=== PATIENT | male | born 1965 | race Caucasian/White ===

== ENCOUNTER 2019-02-03 15:08 | Emergency (ER) | payer MEDICAID, OTHER ==
[~2019-02-03] VITALS: Ht 175.3 cm; Wt 85.7 kg
[~2019-02-03 15:08] MED LIST: LISI40TA4 PO; MUPI22OI2 TP; TRAM50TA PO
[2019-02-03 15:56] LABS: BASOPHILS # (AUTO) 0.1 /CMM (0.0-0.2); BASOPHILS % (AUTO) 0.8 % (0.0-2.0); EOSINOPHILS % (AUTO) 0.7 % (0.0-6.0); HEMATOCRIT 49 % (39-51); LYMPHOCYTES # (AUTO) 3.1 /CMM (0.8-4.8); LYMPHOCYTES % (AUTO) 34.4 % (20.0-44.0); MEAN CORPUSCULAR HGB CONC 34 g/dl (31.0-36.0); MEAN CORPUSCULAR VOLUME 92 fL (80-96); MONOCYTES # (AUTO) 0.5 /CMM (0.1-1.30); MONOCYTES % (AUTO) 5.4 % (2.0-12.0); NEUTROPHILS # (AUTO) 5.2 /CMM (1.8-8.9); NEUTROPHILS % (AUTO) 58.7 % (43.0-81.0); PLATELET COUNT (AUTO) 255 /CMM (150-450); RED BLOOD CELL COUNT(AUTO) 5.34 MIL/uL (4.5-6.0); WHITE BLOOD COUNT (AUTO) 8.9 K/uL (4.3-11.0)
[2019-02-03 16:16] LABS: ALANINE AMINOTRANSFERASE 137 U/L (12-78); ALBUMIN 3.9 g/dL (3.4-5.0); ALCOHOL, BLOOD < 3 mg/dL (0-0); ALKALINE PHOSPHATASE 51 U/L (46-116); ASPARTATE AMINOTRANSFERASE 61 U/L (15-37); BILIRUBIN,DIRECT 0.5 mg/dL (0.0-0.2); BILIRUBIN,TOTAL 1.8 mg/dL (0.2-1.0); CALCIUM, SERUM 9.1 mg/dL (8.5-10.1); CARBON DIOXIDE 22 mmol/L (21-32); CHLORIDE 104 mmol/L (98-107); CREATININE 0.9 mg/dL (0.6-1.3); GLUCOSE 91 mg/dL (74-106); POTASSIUM 3.7 mmol/L (3.5-5.1); SALICYLATE 4.5 mg/dL (2.8-20.0); SODIUM SERUM 141 mmol/L (136-145); UREA NITROGEN, BLOOD 19 mg/dL (7-18)
[2019-02-03 16:17] LABS: ACETAMINOPHEN < 2 ug/ml (10-30)
--- NOTE | 2019-02-03 16:48 | NUR ---
haroon from home for medical clearance,on 5149 with a plan to starve himself to . PT AAOX4, VSS. RR EVEN & UNLABORED. DENIES CP, SOB, DIZZINESS, N/V/D AT THIS TIME. PT CALM & COOPERATIVE. SEEN & EVAL'D BY DR. THOMPSON. JANAE @ & WILL CONT TO MONITOR.
--- NOTE | 2019-02-03 18:07 | NUR ---
PRIMARY CONTACT INFO. CHEVY NAIK, [id number] CONTACT INFO: .
[2019-02-03 19:02] LABS: APPEARANCE,URINE CLEAR (CLEAR); BILIRUBIN,URINE 1+ (NEGATIVE); BLOOD, URINE NEGATIVE Ery/uL (NEGATIVE); COLOR,URINE DARK YELLO (YELLOW); KETONES,URINE 2+ (NEGATIVE); LEUKOCYTE ESTERASE ,URINE NEGATIVE (NEGATIVE); NITRITE, URINE NEGATIVE (NEGATIVE); PH,URINE 5.5 (5.0-8.0); PROTEIN,URINE TRACE mg/dl (NEGATIVE); UGLUCOSE NEGATIVE (NEGATIVE)
--- NOTE | 2019-02-03 19:03 | NUR ---
PAMELA ETA 1 HR
[2019-02-03 19:14] LABS: BACTERIA,URINE Rare /HPF (None Seen); RBC,URINE 0-2 /HPF (0-2); SQUAMOUS EPITHELIAL CELL,UR 0-2 /HPF (None Seen)
[2019-02-03 19:15] LABS: MUCUS,URINE Many /LPF (None Seen)
--- NOTE | 2019-02-03 19:51 | NUR ---
PAMELA, LEAD MAINTENANCE TECHNICIAN @ BS FOR EVAL.
--- NOTE | 2019-02-03 20:22 | NUR ---
Patient is resting comfortably in bed with eyes closed. Easily aroused. VSS
--- NOTE | 2019-02-03 21:27 | NUR ---
PT ACCPETED TO [facility] BY DR GARCIA, [facility] 9 A. # FOR REPORT [phone]
--- NOTE | 2019-02-03 21:32 | NUR ---
[facility] CALLED FOR TRANSPORT. ETA 90 MINS TRIP# [id number]
[2019-02-03] MEDS ORDERED: KETOROLAC TROMETHAMINE INJ 30 MG/ML VIAL ONE (22:19)
[2019-02-03] MEDS ORDERED: KETOROLAC TROMETHAMINE INJ 30 MG/ML VIAL IM ONE (22:30)
[2019-02-03 23:19] VITALS: BP 124/75
--- NOTE | 2019-02-03 23:19 | NUR ---
REPORT GIVEN TO AUDRA BONNER AT [facility] FOR ASHANTI. AWAITING S TRANSPORT.
--- NOTE | 2019-02-03 23:30 | NUR ---
ETA [id number]
--- NOTE | 2019-02-03 23:58 | NUR ---
[facility] AT BEDSIDE FOR TRANSPORT TO [facility]
== END 2019-02-04 00:18 ==
LOC: ER 15:11
DX: R45.851 Suicidal ideations (principal); R07.89 Other chest pain; F43.9 Reaction to severe stress, unspecified; M79.671 Pain in right foot; G89.29 Other chronic pain; I10 Essential (primary) hypertension; F10.10 Alcohol abuse, uncomplicated; F32.9 Major depressive disorder, single episode, unspecified; Y90.0 Blood alcohol level of less than 20 mg/100 ml; Z86.19 Personal history of other infectious and parasitic diseases; Z85.818 Personal history of malignant neoplasm of other sites of lip, oral cavity, and pharynx; Z98.890 Other specified postprocedural states; Z60.2 Problems related to living alone; Z88.9 Allergy status to unspecified drugs, medicaments and biological substances; Z88.6 Allergy status to analgesic agent
CPT/HCPCS: 36415; 71045; 80048; 80076; 80305; 80307; 80329; 81001; 84484; 85025; 93005; 96372; 99285; G0480; J1885; 81000-TC

== ENCOUNTER 2019-02-26 05:14 | Emergency (ER) | payer MEDICAID ==
[~2019-02-26] VITALS: Ht 170.2 cm; Wt 72.6 kg
--- NOTE | 2019-02-26 05:20 | NUR ---
PT [id number], PER EMS, PT STATES "BUZZ NOISE IN HEAD," PT RESTLESS AND ERRATIC BEHAVIOR. PT STATING "I CAN'T BREATH." PT PUT ON THE JAVA FLEX DEVELOPER AND PULSE OX. PENDING EVAL FROM ER .
[2019-02-26 05:40] LABS: BASOPHILS # (AUTO) 0.1 /CMM (0.0-0.2); BASOPHILS % (AUTO) 0.5 % (0.0-2.0); EOSINOPHILS % (AUTO) 0.8 % (0.0-6.0); HEMATOCRIT 48 % (39-51); HEMOGLOBIN 16.5 g/dL (13.5-17.5); LYMPHOCYTES # (AUTO) 3.5 /CMM (0.8-4.8); LYMPHOCYTES % (AUTO) 29.3 % (20.0-44.0); MEAN CORPUSCULAR HGB CONC 35 g/dl (31.0-36.0); MEAN CORPUSCULAR VOLUME 92 fL (80-96); MONOCYTES # (AUTO) 0.9 /CMM (0.1-1.30); MONOCYTES % (AUTO) 7.4 % (2.0-12.0); NEUTROPHILS # (AUTO) 7.3 /CMM (1.8-8.9); PLATELET COUNT (AUTO) 216 /CMM (150-450); RED BLOOD CELL COUNT(AUTO) 5.17 MIL/uL (4.5-6.0); WHITE BLOOD COUNT (AUTO) 11.9 K/uL (4.3-11.0)
[2019-02-26 05:48] LABS: CALCIUM, SERUM 9.3 mg/dL (8.5-10.1); CARBON DIOXIDE 26 mmol/L (21-32); CHLORIDE 102 mmol/L (98-107); CREATININE 1.1 mg/dL (0.6-1.3); GLUCOSE 136 mg/dL (74-106); POTASSIUM 3.3 mmol/L (3.5-5.1); SODIUM SERUM 142 mmol/L (136-145); UREA NITROGEN, BLOOD 16 mg/dL (7-18)
[2019-02-26 05:54] LABS: ALANINE AMINOTRANSFERASE 100 U/L (12-78); ALKALINE PHOSPHATASE 59 U/L (46-116); ASPARTATE AMINOTRANSFERASE 52 U/L (15-37); BILIRUBIN,DIRECT 0.4 mg/dL (0.0-0.2); BILIRUBIN,TOTAL 1.2 mg/dL (0.2-1.0); LIPASE 66 U/L (73-393); SALICYLATE 3.9 mg/dL (2.8-20.0)
[2019-02-26 06:00] LABS: ACETAMINOPHEN 0 ug/ml (10-30); ALCOHOL, BLOOD < 3 mg/dL (0-0)
[2019-02-26] MEDS ORDERED: LORAZEPAM INJ 2 MG/ML VIAL ONE (06:09)
--- NOTE | 2019-02-26 06:15 | NUR ---
XRAY AT BEDSIDE.
[2019-02-26] MEDS ORDERED: LORAZEPAM INJ 2 MG/ML VIAL IM ONE (06:30)
[2019-02-26] MEDS ORDERED: OLANZAPINE 5 MG TABLET PO ONE (07:00)
[2019-02-26] MEDS ORDERED: OLANZAPINE 5 MG TABLET ONE (07:01)
[2019-02-26 07:12] LABS: APPEARANCE,URINE CLEAR (CLEAR); BILIRUBIN,URINE 2+ (NEGATIVE); BLOOD, URINE NEGATIVE Ery/uL (NEGATIVE); COLOR,URINE AMBER (YELLOW); KETONES,URINE 3+ (NEGATIVE); LEUKOCYTE ESTERASE ,URINE NEGATIVE (NEGATIVE); NITRITE, URINE NEGATIVE (NEGATIVE); PROTEIN,URINE 2+ mg/dl (NEGATIVE); UGLUCOSE NEGATIVE (NEGATIVE)
--- NOTE | 2019-02-26 07:18 | NUR ---
REPORT GIVEN TO NASEEM ZHU FOR ASHANTI.
--- NOTE | 2019-02-26 07:19 | NUR ---
REPORT RECEIVED FROM MARCI ZHU FOR ASHANTI
[2019-02-26 07:41] LABS: BACTERIA,URINE Rare /HPF (None Seen); CALCIUM OXALATE CRYSTALS,UR Rare /HPF (None Seen); MUCUS,URINE Few /LPF (None Seen); RBC,URINE 0-2 /HPF (0-2); SQUAMOUS EPITHELIAL CELL,UR Rare /HPF (None Seen)
--- NOTE | 2019-02-26 08:09 | NUR ---
PATIENT PROVIDED W BREAKFAST TRAY. TOLERATING PO WELL.
--- NOTE | 2019-02-26 08:18 | NUR ---
Patient discharged to home in stable condition. Written and verbal after care instructions given. Patient verbalizes understanding of instruction. Provided w tap card per patient request to ba able to go home.
[2019-02-26 08:24] VITALS: BP 151/89
== END 2019-02-26 08:25 | disposition home or self-care (01) ==
LOC: ER 05:15
DX: K76.0 Fatty (change of) liver, not elsewhere classified (principal); R74.0 Nonspecific elevation of levels of transaminase and lactic acid dehydrogenase [LDH]; I10 Essential (primary) hypertension; Z86.19 Personal history of other infectious and parasitic diseases; Z98.890 Other specified postprocedural states; Z88.8 Allergy status to other drugs, medicaments and biological substances; Z91.048 Other nonmedicinal substance allergy status; Z60.2 Problems related to living alone; Z79.899 Other long term (current) drug therapy; Z85.818 Personal history of malignant neoplasm of other sites of lip, oral cavity, and pharynx
CPT/HCPCS: 36415; 71045; 76705; 80048; 80076; 80305; 80307; 80329; 81001; 83690; 85025; 96372; 99284; G0480; J2060; 81000-TC

== ENCOUNTER 2019-05-11 06:42 | Emergency (ER) | payer MEDICAID ==
[~2019-05-11] VITALS: Ht 170.2 cm; Wt 71.7 kg
[2019-05-11] MEDS ORDERED: ASPIRIN 325 MG TABLET PO ONE (07:00)
[2019-05-11] MEDS ORDERED: IV NS 0.9% 1,000 ML BAG IV ONE (07:00)
--- NOTE | 2019-05-11 07:04 | NUR ---
WILMER FROM HOME TO ER BED 4. AAOX4. BREATHIBG RAPID BUT EVEN. VERY ANXIOUS. TREMBLING. 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 PT REPORTS THAT HIS BODY HURTS, CHEST PAIN, NON RADIATING. PEDAL PULSE NOTED ON BILAT FOOT. MD AT BEDSIDE FOR EVAL. ORDERS RECEIVED, NOTED AND CARRIED OUT. IV LINE OBTAINED ON L AC 18G. BLOOD DRAWNA AND GIVENT O ADMINISTRATIVE NURSING SUPERVISOR AT BEDSIDE. EKG AND XRAY DONE. PT REFUSED TO RECEIVED IV HYDRATION, MD AWARE. WILL CONTINUE TO MONITOR
[2019-05-11] MEDS ORDERED: ASPIRIN 325 MG TABLET ONE (07:16)
[2019-05-11 07:23] LABS: CALCIUM, SERUM 9.5 mg/dL (8.5-10.1); CARBON DIOXIDE 26 mmol/L (21-32); CHLORIDE 104 mmol/L (98-107); CREATININE 0.9 mg/dL (0.6-1.3); GLUCOSE 136 mg/dL (74-106); POTASSIUM 3.8 mmol/L (3.5-5.1); SODIUM SERUM 139 mmol/L (136-145); UREA NITROGEN, BLOOD 12 mg/dL (7-18)
[2019-05-11 07:29] LABS: ALANINE AMINOTRANSFERASE 57 U/L (12-78); ALKALINE PHOSPHATASE 51 U/L (46-116); ASPARTATE AMINOTRANSFERASE 35 U/L (15-37); BILIRUBIN,DIRECT 0.2 mg/dL (0.0-0.2); BILIRUBIN,TOTAL 0.9 mg/dL (0.2-1.0); LIPASE 115 U/L (73-393); TOTAL PROTEIN, SERUM 8.1 g/dL (6.4-8.2)
[2019-05-11 07:33] LABS: BASOPHILS # (AUTO) 0.1 /CMM (0.0-0.2); BASOPHILS % (AUTO) 0.6 % (0.0-2.0); EOSINOPHILS % (AUTO) 1.3 % (0.0-6.0); HEMATOCRIT 47 % (39-51); HEMOGLOBIN 16.2 g/dL (13.5-17.5); LYMPHOCYTES # (AUTO) 3.1 /CMM (0.8-4.8); MEAN CORPUSCULAR HGB CONC 34 g/dl (31.0-36.0); MEAN CORPUSCULAR VOLUME 93 fL (80-96); MONOCYTES # (AUTO) 0.7 /CMM (0.1-1.30); NEUTROPHILS # (AUTO) 5.7 /CMM (1.8-8.9); NEUTROPHILS % (AUTO) 59.1 % (43.0-81.0); PLATELET COUNT (AUTO) 188 /CMM (150-450); RED BLOOD CELL COUNT(AUTO) 5.05 MIL/uL (4.5-6.0); WHITE BLOOD COUNT (AUTO) 9.6 K/uL (4.3-11.0)
[2019-05-11] MEDS ORDERED: LORAZEPAM INJ 2 MG/ML VIAL ONE (08:57)
[2019-05-11] MEDS ORDERED: LORAZEPAM INJ 2 MG/ML VIAL IV ONE (09:00)
--- NOTE | 2019-05-11 10:23 | NUR ---
LAB TECHA AT BEDSIDE FOR TROPONIN RECHECK
--- NOTE | 2019-05-11 11:21 | NUR ---
IV removed. Catheter intact and site benign. Pressure and 4x4 applied to site. No bleeding noted.Patient discharged to home in stable condition. Written and verbal after care instructions given. Patient verbalizes understanding of instruction.
--- NOTE | 2019-05-11 11:23 | NUR ---
PROVIDED W TAP CARD
[2019-05-11 11:24] VITALS: BP 142/72
== END 2019-05-11 11:25 | disposition home or self-care (01) ==
LOC: ER 06:45
DX: R07.89 Other chest pain (principal); I10 Essential (primary) hypertension; Z86.19 Personal history of other infectious and parasitic diseases; Z98.890 Other specified postprocedural states; Z91.048 Other nonmedicinal substance allergy status; Z60.2 Problems related to living alone; Z79.899 Other long term (current) drug therapy; Z85.819 Personal history of malignant neoplasm of unspecified site of lip, oral cavity, and pharynx
CPT/HCPCS: 36415; 71045; 80048; 80076; 83690; 84484 ×2; 85025; 93005 ×2; 96374; 99284; J2060; J7030

== ENCOUNTER 2019-05-25 08:52 | Emergency (ER) | payer MEDICAID ==
[~2019-05-25] VITALS: Ht 170.2 cm; Wt 71.7 kg
--- NOTE | 2019-05-25 09:04 | NUR ---
CARLIE, FROM HOME, C/O "I CAN'T BREATH, NOT EATING", AMBULATORY ON SCENE. ON ROOM AIR, BREATHING EVENLY AND UNLABORED. CONNECTED TO THE MONITOR AND PULSE OX. KEPT COMFORTABLE, WILL CONTINUE TO MONITOR ACCORDINGLY.
--- NOTE | 2019-05-25 09:12 | NUR ---
dr cuadra at bedside
[2019-05-25 09:29] LABS: BASOPHILS % (AUTO) 0.3 % (0.0-2.0); EOSINOPHILS % (AUTO) 0.8 % (0.0-6.0); HEMATOCRIT 48 % (39-51); HEMOGLOBIN 15.9 g/dL (13.5-17.5); LYMPHOCYTES # (AUTO) 2.9 /CMM (0.8-4.8); LYMPHOCYTES % (AUTO) 24.4 % (20.0-44.0); MEAN CORPUSCULAR HGB CONC 33 g/dl (31.0-36.0); MEAN CORPUSCULAR VOLUME 95 fL (80-96); MONOCYTES # (AUTO) 0.6 /CMM (0.1-1.30); MONOCYTES % (AUTO) 5.3 % (2.0-12.0); NEUTROPHILS # (AUTO) 8.3 /CMM (1.8-8.9); NEUTROPHILS % (AUTO) 69.2 % (43.0-81.0); PLATELET COUNT (AUTO) 317 /CMM (150-450); RED BLOOD CELL COUNT(AUTO) 5.01 MIL/uL (4.5-6.0)
[2019-05-25] MEDS ORDERED: LORAZEPAM INJ 2 MG/ML VIAL ONE (09:30)
[2019-05-25] MEDS ORDERED: LORAZEPAM INJ 2 MG/ML VIAL IV ONE (09:30)
[2019-05-25] MEDS ORDERED: IV NS 0.9% 1,000 ML BAG IV ONE (09:30)
[2019-05-25 09:39] LABS: CALCIUM, SERUM 9.3 mg/dL (8.5-10.1); CARBON DIOXIDE 20 mmol/L (21-32); CHLORIDE 100 mmol/L (98-107); CREATININE 1.1 mg/dL (0.6-1.3); GLUCOSE 97 mg/dL (74-106); POTASSIUM 3.7 mmol/L (3.5-5.1); SODIUM SERUM 136 mmol/L (136-145); UREA NITROGEN, BLOOD 21 mg/dL (7-18)
[2019-05-25 09:44] LABS: ALANINE AMINOTRANSFERASE 57 U/L (12-78); ALBUMIN 4.3 g/dL (3.4-5.0); ALKALINE PHOSPHATASE 65 U/L (46-116); ASPARTATE AMINOTRANSFERASE 43 U/L (15-37); BILIRUBIN,DIRECT 0.2 mg/dL (0.0-0.2); BILIRUBIN,TOTAL 0.8 mg/dL (0.2-1.0); LIPASE 109 U/L (73-393); TOTAL PROTEIN, SERUM 8.7 g/dL (6.4-8.2)
--- NOTE | 2019-05-25 10:58 | NUR ---
provided w tap card.
[2019-05-25 11:00] VITALS: BP 146/92
== END 2019-05-25 11:00 | disposition home or self-care (01) ==
LOC: ER 08:54
DX: E86.0 Dehydration (principal); R07.89 Other chest pain; I10 Essential (primary) hypertension; F10.10 Alcohol abuse, uncomplicated; Y90.9 Presence of alcohol in blood, level not specified; Z86.19 Personal history of other infectious and parasitic diseases; Z85.818 Personal history of malignant neoplasm of other sites of lip, oral cavity, and pharynx; Z98.890 Other specified postprocedural states; Z60.2 Problems related to living alone; Z79.899 Other long term (current) drug therapy; Z88.8 Allergy status to other drugs, medicaments and biological substances; Z88.6 Allergy status to analgesic agent
CPT/HCPCS: 36415; 71045; 80048; 80076; 83690; 84484; 85025; 93005; 96374; 99284; J2060; J7030

== ENCOUNTER 2019-06-16 07:28 | Inpatient (IN) | payer MEDICAID ==
[~2019-06-16] VITALS: Ht 170.2 cm; Wt 65.8 kg
[2019-06-16] VITALS (30 sets, daily range): BP systolic 85–137; BP diastolic 44–95
--- NOTE | 2019-06-16 07:30 | NUR ---
BIB RA 78 FROM HOME, TEXTED SOMEBODY SAYING HE WAS VOMITING BLOOD,UNCOO-PERATIVE WITH EMS. PATIENT ALERT AND ORIENTED, REFUSING TO ANSWER QUESTIONS, UNCOOPERATIVE WITH STAFF. CHANGED INTO GOWN, ATTACHED TO THE IOS PROGRAMMER. NEEDS ATTENDED. KEPT COMFORTABLE.
--- NOTE | 2019-06-16 07:40 | NUR ---
DR. GALLEGOS AT BEDSIDE FOR EVAL.
[2019-06-16] MEDS ORDERED: ONDANSETRON HCL/PF 4 MG/2 ML VIAL ONE (07:52)
[2019-06-16] MEDS ORDERED: PANTOPRAZOLE 40 MG VIAL ONE (07:52)
[2019-06-16] MEDS ORDERED: PANTOPRAZOLE 40 MG VIAL IV ONE (08:00)
[2019-06-16] MEDS ORDERED: ONDANSETRON HCL/PF 4 MG/2 ML VIAL IVP ONE (08:00)
[2019-06-16] MEDS ORDERED: IV NS 0.9% 1,000 ML BAG IV ONE (08:00)
[2019-06-16 08:28] LABS: BASOPHILS # (AUTO) 0.1 /CMM (0.0-0.2); BASOPHILS % (AUTO) 0.5 % (0.0-2.0); EOSINOPHILS % (AUTO) 0.1 % (0.0-6.0); LYMPHOCYTES # (AUTO) 3.8 /CMM (0.8-4.8); LYMPHOCYTES % (AUTO) 25.5 % (20.0-44.0); MEAN CORPUSCULAR HGB CONC 31 g/dl (31.0-36.0); MEAN CORPUSCULAR VOLUME 95 fL (80-96); MONOCYTES # (AUTO) 0.8 /CMM (0.1-1.30); MONOCYTES % (AUTO) 5.7 % (2.0-12.0); NEUTROPHILS # (AUTO) 10.2 /CMM (1.8-8.9); NEUTROPHILS % (AUTO) 68.2 % (43.0-81.0); PLATELET COUNT (AUTO) 406 /CMM (150-450); WHITE BLOOD COUNT (AUTO) 14.9 K/uL (4.3-11.0)
[2019-06-16 08:30] LABS: CALCIUM, SERUM 7.8 mg/dL (8.5-10.1); CARBON DIOXIDE 20 mmol/L (21-32); CHLORIDE 102 mmol/L (98-107); CREATININE 1.2 mg/dL (0.6-1.3); GLUCOSE 188 mg/dL (74-106); POTASSIUM 3.7 mmol/L (3.5-5.1); SODIUM SERUM 139 mmol/L (136-145); UREA NITROGEN, BLOOD 34 mg/dL (7-18)
[2019-06-16 08:34] LABS: RED BLOOD CELL COUNT(AUTO) 1.56 MIL/uL (4.5-6.0)
[2019-06-16 08:35] LABS: HEMATOCRIT 15 % (39-51); HEMOGLOBIN 4.6 g/dL (13.5-17.5)
[2019-06-16 08:36] LABS: ACETAMINOPHEN 2 ug/ml (10-30); ALANINE AMINOTRANSFERASE 23 U/L (12-78); ALBUMIN 2.3 g/dL (3.4-5.0); ALCOHOL, BLOOD < 3 mg/dL (0-0); ALKALINE PHOSPHATASE 44 U/L (46-116); ASPARTATE AMINOTRANSFERASE 31 U/L (15-37); BILIRUBIN,DIRECT 0.1 mg/dL (0.0-0.2); BILIRUBIN,TOTAL 0.2 mg/dL (0.2-1.0); LIPASE 154 U/L (73-393); SALICYLATE 3.5 mg/dL (2.8-20.0); TOTAL PROTEIN, SERUM 5.2 g/dL (6.4-8.2)
--- NOTE | 2019-06-16 08:45 | NUR ---
METAL INSPECTOR AT BEDSIDE FOR CXR.
[2019-06-16 08:53] LABS: APPEARANCE,URINE Clear (CLEAR); BILIRUBIN,URINE Negative (NEGATIVE); BLOOD, URINE Negative Ery/uL (NEGATIVE); COLOR,URINE Yellow (YELLOW); KETONES,URINE Trace (NEGATIVE); LEUKOCYTE ESTERASE ,URINE Negative (NEGATIVE); NITRITE, URINE Negative (NEGATIVE); PROTEIN,URINE Negative (NEGATIVE); UGLUCOSE Negative (NEGATIVE); UROBILINOGEN,URINE 0.2 EU/dL (0.2)
[2019-06-16 09:00] LABS: BACTERIA,URINE Rare /HPF (None Seen); RBC,URINE NONE SEEN /HPF (0-2); SQUAMOUS EPITHELIAL CELL,UR Few /HPF (None Seen); WBC,URINE NONE SEEN /HPF (0-3)
--- NOTE | 2019-06-16 09:06 | NUR ---
WHEELED OUT VIA RNEY FOR CT SCAN
[2019-06-16] MEDS ORDERED: MIDAZOLAM HCL 5 MG/5ML VIAL ONE (09:12)
--- NOTE | 2019-06-16 09:26 | NUR ---
SPOKE WITH ALDAIR ZHU FOR ASHANTI.
[2019-06-16] MEDS ORDERED: MIDAZOLAM HCL 2 MG/2ML VIAL IV ONE (09:30)
--- NOTE | 2019-06-16 10:02 | NUR ---
called house sup for icu bed
--- NOTE | 2019-06-16 10:02 | NUR ---
spoke to dr vasquez
--- NOTE | 2019-06-16 10:03 | NUR ---
called division roadmaster GI
--- NOTE | 2019-06-16 10:07 | NUR ---
called consuelo to have image read
[2019-06-16 10:17] LABS: THYROID STIMULATING HORMONE 7.321 uIU/mL (0.358-3.74)
[2019-06-16 10:33] LABS: LYMPHOCYTES % (MANUAL) 24 % (16-48); MONOCYTES % (MANUAL) 2 % (0-11.0); NEUTROPHILS % (MANUAL) 74 (42-76)
--- NOTE | 2019-06-16 11:15 | NUR ---
1 UNIT OF PRBC STARTED ON LEFT HAND G20 IV AT 1110. NO ADVERSE REACTION NOTED. VITALS STABLE.
--- NOTE | 2019-06-16 11:45 | NUR ---
PATIENT TRANSFERRED TO ROOM 252 VIA ACLS PROTOCOL. NO DISTRESS NOTED. ENDORSED TO TK RN.
--- NOTE | 2019-06-16 12:00 | NUR ---
RN NOTES RECEIVED PATIENT FROM ER VIA TEMI. ABLE TO MOVE BED TO BED. PATIENT A/OX4, ABLE TO MAKE NEEDS KNOWN. COLD TO TOUCH THUS SATURATION NOT ACCURATE AT THIS TIME, PATIENT WITH COMPLAINTS OF SHORTNESS OF BREATH, ON OXYGEN VIA NASAL CANNULA AT 3LPM. WITH COMPLAINTS OF ABDOMINAL PAIN. PATIENT ATTACHED TO MONITOR. SKIN ASSESSMENT DONE, SKIN NOTED INTACT. PATIENT WITH ONGOING FLUID AND BLOOD STARTED FROM THE ER, WILL FINISH IT UP AND WILL CONTINUE TO MONITOR. PATIENT MADE COMFORTABLE, ENCOURAGE TO CALL FOR HELP AND ASSISTANCE, VERBALIZED FEELINGS AND CONCERNS. HOB KEPT ELEVATED. SAFETY MEASURES PUT IN PLACE. WILL CONTINUE TO MONITOR PATIENT AND WAIT FOR ADMITTING ORDERS
[2019-06-16] MEDS: IV D5/ 0.9% NACL 1,000 ML IV PRN (12:15)
--- NOTE | 2019-06-16 12:15 | NUR ---
RN NOTES PATIENT CONTINUES TO COMPLAIN OF PAIN AND DRY MOUT. PAGED DR FLOWER. OBTAINED ORDERS. ORDERS NOTED AND CARRIED OUT. DR FLOWER WITH INSTRUCTION, OKAY TO GIVE ICE CHIPS
[2019-06-16] MEDS: ONDANSETRON HCL/PF 4 MG/2 ML VIAL IV PRN (12:24)
[2019-06-16] MEDS: PANTOPRAZOLE 40 MG VIAL IV SCH ×2 (12:24→23:43)
[2019-06-16] MEDS ORDERED: MORPHINE SULFATE INJ 2 MG/ML DISP.SYRIN IM/IV PRN (12:30)
--- NOTE | 2019-06-16 13:00 | NUR ---
RN NOTES DR. FLOWER AT THE UNIT. PATIENT SEEN AND EXAMINED. PER DR. FLOWER, OKAY TO GIVE ICE CHIPS TOLERATED. ALSO DR. CORCORAN MADE AWARE OF CONSULT ORDER PER DR. FLOWER'S REQUEST TO CALL HIM
[2019-06-16] MEDS: HYDROMORPHONE 1 MG/1 ML DISP.SYRIN IV PRN ×3 (14:24→22:47)
--- NOTE | 2019-06-16 19:30 | NUR ---
RN NOTES ENDORSED PATIENT FOR CONTINUITY OF CARE. NOT ON CARDIORESPIRATORY DISTRESS BUT STILL WITH COMPLAINTS OF SHORTNESS OF BREATH AND ABDOMINAL PAIN. BAG 3 STARTED AND INFUSING. ENDORSED TO INCOMING SHIFT ON ORDERS TO CHECK H AND H AFTER 1 HOUR AFTER THE TRANSFUSION AND Q4 THEREAFTER
[2019-06-16] MEDS: LORAZEPAM INJ 2 MG/ML VIAL IV PRN (19:36)
--- NOTE | 2019-06-16 23:45 | NUR ---
after 3rd PRBC transfusion h/h is 6.0/19, up from 4.6/15. dr vasquez was notified and informed, since hgb is still critical, he ordered 2 more PRBC and 2 FFP and to decrease d5ns to 50 ml/hr
[2019-06-17] VITALS (35 sets, daily range): BP systolic 70–144; BP diastolic 33–104
[2019-06-17] MEDS: IV D5/ 0.9% NACL 1,000 ML IV PRN ×2 (00:49→04:31)
[2019-06-17] MEDS: LORAZEPAM INJ 2 MG/ML VIAL IV PRN ×3 (01:49→20:41)
--- NOTE | 2019-06-17 02:23 | NUR ---
pt is refusing any additional blood transfusion, pt was educated multiple times about the importance of getting the blood and pt is continuing to refuse. Dr vasquez notified, will not give any more blood transfusion now, and Dr. Vasquez gave order to transfer pt to [facility], pt is stable on room air.
--- NOTE | 2019-06-17 03:31 | NUR ---
pt transferred to [facility]- tele status with nurse discharge Ed, pt awake alert, vss
[2019-06-17] MEDS: HYDROMORPHONE 1 MG/1 ML DISP.SYRIN IV PRN ×5 (03:50→21:08)
--- NOTE | 2019-06-17 03:50 | NUR ---
MS/RN NOTE: C/O BURNING PAIN ON HIS THROAT, 10/10 ON PAIN SCALE, DILAUDID 0.5 MG IVP GIVEN.
--- NOTE | 2019-06-17 03:51 | NUR ---
MS/RN NOTE: RECEIVED TRANFER FROM ICU A 54 YEAR OLD MALE , DX OF ORAL CANCER, C/O BURNING PAIN INSIDE HIS THROAT, A/O X2, HE DOES NOT KNOW WHERE HE IS, VITALS 98/57, MAP 71, PULSE 78, TEMP. 99.0. ROOM AIR 99%. NO ACUTE DISTRESS NOTED. WILL CONTINUE TO MONITOR.
--- NOTE | 2019-06-17 06:17 | NUR ---
MS/RN NOTE: CALLED AND SPOKE WITH DR. SMITH, NOTIFIED OF PATIENT'S LATEST CONDITION, MD ORDERED, 2 UNITS PRBC AND 2 UNITS OF FFP. LATEST VS144/98, 126, 100% SAT. ON 2L VIA OK.
--- NOTE | 2019-06-17 06:19 | NUR ---
MS/RN NOTE: CALLED LAB AND ASKED IF BLOOD AVAILABLE, THEY WILL CALL ME BACK.
--- NOTE | 2019-06-17 06:19 | NUR ---
MS/RN NOTE: LATEST PULSE 98 FORM 126.
--- NOTE | 2019-06-17 06:37 | NUR ---
TELERN PLACED [facility]. UPDATED REGARDING PATIENTS' CONDITION. LEFT MESSAGE. INFORMED PRIMARY RN
--- NOTE | 2019-06-17 06:59 | NUR ---
GPS/RN NOTE: MS/RN NOTE: FIRST UNIT OF BLOOD STARTED @ 0657, NO TRANSFUSION REACTION NOTED.
[2019-06-17 07:13] LABS: ALBUMIN 1.6 g/dL (3.4-5.0); BILIRUBIN,TOTAL 0.5 mg/dL (0.2-1.0); CALCIUM, SERUM 6.8 mg/dL (8.5-10.1); POTASSIUM 4.1 mmol/L (3.5-5.1); TOTAL PROTEIN, SERUM 3.7 g/dL (6.4-8.2)
--- NOTE | 2019-06-17 07:14 | NUR ---
MS/RN NOTE: WAS NOTIFIED BY CHARGE NURSE ABOUT PATIENT'S LATEST CONDITION.
--- NOTE | 2019-06-17 07:55 | NUR ---
rn notes received patient in the bed restless, confused, on mask 10L, v/s taken bp -70.39, P-102, r-30, t-97.4, on mask 10L. running blood at this time 150 ml/hr on right UA midline intact. Seen patient by Dr Oden get order to transfer patient to the ICU.
--- NOTE | 2019-06-17 08:15 | NUR ---
RN NOTES GET CALL FROM GI MD CORCORAN PATIENT GOING TO HAVE EGD FOR DIAGNOSTIC AND TREATMENT FOR GI BLEEDING. ADMINISTERED NS BOLUS 500 ML.
[2019-06-17] MEDS ORDERED: IV NS 0.9% 500 ML IV ONE (09:00)
[2019-06-17 09:25] LABS: BASOPHILS # (AUTO) 0.1 /CMM (0.0-0.2); BASOPHILS % (AUTO) 0.5 % (0.0-2.0); EOSINOPHILS % (AUTO) 0.3 % (0.0-6.0); LYMPHOCYTES # (AUTO) 3.5 /CMM (0.8-4.8); MEAN CORPUSCULAR HGB CONC 33 g/dl (31.0-36.0); MEAN CORPUSCULAR VOLUME 89 fL (80-96); MONOCYTES # (AUTO) 0.8 /CMM (0.1-1.30); MONOCYTES % (AUTO) 6.5 % (2.0-12.0); NEUTROPHILS # (AUTO) 7.2 /CMM (1.8-8.9); NEUTROPHILS % (AUTO) 62.7 % (43.0-81.0); PLATELET COUNT (AUTO) 257 /CMM (150-450); WHITE BLOOD COUNT (AUTO) 11.5 K/uL (4.3-11.0)
--- NOTE | 2019-06-17 09:29 | NUR ---
RN NOTES STARTED SECOND UNIT OF BLOOD AT THIS TIME T-97.4, P-67, R-33, BP-133/103, O2-10L MASK. PATIENT COMPLAINING OF PAIN ON STOMACH. ALSO TRANSFERRING PATIENT TO THE OR AT THIS TIME FOR EGD PER MD ORDER.
[2019-06-17] MEDS ORDERED: EPINEPHRINE (1:1000) 1 MG/ML AMPUL ONE (09:49)
[2019-06-17 09:51] LABS: RED BLOOD CELL COUNT(AUTO) 1.45 MIL/uL (4.5-6.0)
[2019-06-17 09:52] LABS: HEMATOCRIT 13 % (39-51); HEMOGLOBIN 4.3 g/dL (13.5-17.5)
[2019-06-17 10:00] LABS: LYMPHOCYTES % (MANUAL) 27 % (16-48); MONOCYTES % (MANUAL) 3 % (0-11.0); NEUTROPHILS % (MANUAL) 70 (42-76)
--- NOTE | 2019-06-17 10:53 | NUR ---
RN NOTES GIVEN 3RD UNITS OF BLOOD ON OR NURSE.
--- NOTE | 2019-06-17 11:30 | NUR ---
ICU/RN: Pt received; 3rd unit of PRBC transfusion completed in OR. Pt pale, breathing even and unlabored, drowsy. Alert and oriented x4. ELIAS ML patent intact, LFA #20 flushed, clamped. Oriented to unit and poc. Nodded head in agreement.
[2019-06-17] MEDS: LIDOCAINE VISCOUS 2% UD 15 ML UDC MM PRN ×2 (12:43→17:35)
[2019-06-17] MEDS: PANTOPRAZOLE 40 MG VIAL IV SCH (12:44)
[2019-06-17 12:47] LABS: HEMOGLOBIN 8.2 g/dL (13.5-17.5)
--- NOTE | 2019-06-17 12:50 | NUR ---
ICU/RN: Called Dr Oden; informed of pt request for comfort care measures only. Pt previously DNR/DNI prior to surgery. Pt states "I am ready to go, I really just want to be comfortable, I don't want anything done anymore." Per Dr Oden, "continue current pain management regimen, H/H q6h, keep pt as comfortable as possible, I'll talk to him in the morning." MD aware pt refusing blood transfusion. Last H/H relayed to MD. cover stitch machine operator updated.
--- NOTE | 2019-06-17 13:58 | NUR ---
building services coordinator consult requested by Transportation OfficerManager Noland for suicidal ideation assessment. Pt is a 54 year old male admitted to [facility] for altered/GI bleeding. Per Transportation Officer Nuzhat, pts Mother expressed concerned regarding pt possibly exhibiting suicidal ideation due to pt telling his Mother he had plans on ending his life by no longer eating or drinking fluids. SW attempted to conduct social service assessment with pt but pt is not alert and not able to cooperate during this time. SW consulted with attending nurse, and nurse states pt is currently receiving comfort care. SW will follow up at a later time. SW will inform Transportation Officer Nuzhat of aforementioned information. SW will remain available if needed.
--- NOTE | 2019-06-17 18:00 | NUR ---
ICU/RN: Pt c/o abd pain however also requesting snacks, despite stating "It's also hard for me to swallow from the pain." Educated pt on diagnosis, and need for NPO. Ice chips provided for comfort as ordered. Pt also elaborates on medical history stating that he's had "esophageal and throat cancer for 6 years, and was recently told by his doctor that it may have spread to his colon." Pt has refused further work up since and prefers not to have any aggressive treatment saying "It's time, I'm just leaving it in God's hands."
[2019-06-17 18:56] LABS: HEMOGLOBIN 8.3 g/dL (13.5-17.5)
--- NOTE | 2019-06-17 20:00 | NUR ---
BINDER LOCKSTITCH - NOTES - RECEIVED PATIENT IN BED. PATIENT A/OX4, ABLE TO MAKE NEEDS KNOWN. WITH COMPLAINTS OF ABDOMINAL PAIN. PATIENT ATTACHED TO MONITOR. SKIN ASSESSMENT DONE, SKIN NOTED INTACT. PATIENT MADE COMFORTABLE, ENCOURAGE TO CALL FOR HELP AND ASSISTANCE, VERBALIZED FEELINGS AND CONCERNS. HOB KEPT ELEVATED. SAFETY MEASURES PUT IN PLACE. WILL CONTINUE TO MONITOR PATIENT AND WAIT FOR ADMITTING ORDERS
[2019-06-18] VITALS (15 sets, daily range): BP systolic 68–138; BP diastolic 36–78
[2019-06-18] MEDS: HYDROMORPHONE 1 MG/1 ML DISP.SYRIN IV PRN ×3 (00:11→08:01)
[2019-06-18] MEDS: PANTOPRAZOLE 40 MG VIAL IV SCH ×2 (00:11→12:30)
[2019-06-18] MEDS: LORAZEPAM INJ 2 MG/ML VIAL IV PRN ×2 (04:09→10:07)
[2019-06-18] MEDS: IV D5/ 0.9% NACL 1,000 ML IV PRN (06:13)
--- NOTE | 2019-06-18 07:30 | NUR ---
RN NOTES RECEIVED PATIENT IN BED. AWAKE, ORIENTED X 4, APPROPRIATE AND ABLE TO MAKE NEEDS KNOWN. PALE LOOKING. ON ROOM AIR, BREATHING UNLABORED. SATING WELL. SINUS RHYTHM ON THE MONITOR WITH HR ON THE 90S. PATIENT WITH COMPLAINTS OF PAIN 04/18 - WAS ASKING FOR PAIN MEDICATION IS NOT DUE IN AN HOUR. PATIENT AMBULATORY. ENCOURAGE TO CALL FOR HELP AND ASSISTANCE. SAFETY MEASURES PUT IN PLACE AT ALL TIMES. BED IN LOW AND LOCKED POSITIONED. SRX2 RAISED. CALL LIGHT WITHIN REACH. BED ALARM ON. WILL CONTINUE TO MONITOR PATIENT CLOSELY
--- NOTE | 2019-06-18 08:30 | NUR ---
RN NOTES DR. FLOWER AT THE UNIT. PATIENT SEEN AND EXAMINED. WITH ORDERS MADES AFTERWARDS. ALL ORDERS NOTED AND CARRIED OUT.
[2019-06-18] MEDS: ONDANSETRON HCL/PF 4 MG/2 ML VIAL IV PRN (09:11)
--- NOTE | 2019-06-18 10:00 | NUR ---
RN NOTES PATIENT TRANSFERRED BY MYSELF IN ROOM 206. PATIENT NOT ON ANY FORM OF DISTRESS, STILL WITH COMPLAINTS OF PAIN DESPITE THE PAIN MEDICATION ADMINISTRATION. REPORTS GIVEN TO AUDRA VINSON. HANDS OFF
--- NOTE | 2019-06-18 10:10 | NUR ---
MS 2 RN NOTES RECEIVED PATIENT TRANSFER FROM ICU .REPORT RECEIVED FROM AUDRA GAMEZ.PT IS AWAKE, ORIENTED X 2, GROGGY,APPROPRIATE AND ABLE TO MAKE NEEDS KNOWN. PALE LOOKING. ON ROOM AIR, BREATHING UNLABORED. SATING WELL. AMB AD WELL WITH UNSTEADY GAIT.FALL RISK.PATIENT WITH COMPLAINTS OF ABDOMINAL PAIN 10/10 SCREAMING IN THE HALLWAY. ENCOURAGED TO CALL FOR HELP AND ASSISTANCE. PLACED ON BED ALARM. SAFETY MEASURES PUT IN PLACE AT ALL TIMES. BED IN LOW AND LOCKED POSITIONED. SRX2 RAISED. CALL LIGHT WITHIN REACH.WILL CONTINUE TO MONITOR PATIENT CLOSELY
[2019-06-18] MEDS ORDERED: IOHEXOL-300 100 ML VIAL IV ONE (10:37)
[2019-06-18] MEDS ORDERED: IV NS 0.9% 250 ML IV ONE (10:37)
--- NOTE | 2019-06-18 10:40 | NUR ---
PT WAS BROUGHT DOWN FOR CT SCAN OF THE NECK WITH CONTRAST.WITH CONSENT SIGNED.
[2019-06-18] MEDS ORDERED: HYDROMORPHONE 1 MG/1 ML DISP.SYRIN IV PRN (11:00)
--- NOTE | 2019-06-18 11:00 | NUR ---
pt came back from ct scan of the neck.
--- NOTE | 2019-06-18 12:33 | NUR ---
PT PULLED OUT HIS 2 IV HEPLOCKS,VERY RESTLESS AND AGITATED.SO CONFUSED.PT IS SO EAGER TO GO HOME.EXPLAINED TO THE PT THAT WE ARE STILL WAITING FOR HIS PENDING NECK CT RESULT.PT'S FRIEND,JERMAINE RESPONSIBLE DEMOCRAT,CAME AND STATED THAT HE CAN WEIGHT RECORDER THE PT IF THERE IS A DISCHARGE ORDER..PT'S OTHER FRIEND AND EX GF NASIM SAAVEDRA IS ALSO ONE OF THE PT'S RESPONSIBLE DEMOCRAT BUT UNABLE TO WEIGHT RECORDER THE PT DUE TO HER WORK. CAME AND STATED THAT HE CAN WEIGHT RECORDER THE PT IF THERE IS A DISCHARGE ORDER. PT IS SO RESTLESS AND KEEP CHECKING THE TRASH AND UNDER THE BED,LOOKING FOR HIS SHOES INSPITE OF EXPLAINING THAT HE DIDN'T CAME WITH SHOES(NOT ON THE BELONGING'S LIST) EXPLAINED TO THE PT 5X BUT STILL CONTINUES TO BE RESTLESS.ATIVAN 0.5 MG IV WAS GIVEN EARLIER.
--- NOTE | 2019-06-18 12:35 | NUR ---
PT REFUSED IV H/L REINSERTION INSPITE OF EXPLAINING ITS RISKS AND BENEFITS.
--- NOTE | 2019-06-18 13:28 | NUR ---
PT KEEPS WALKING BACK AND FORTH IN THE HALLWAY AND AROUND HIS ROOM SAYING HE IS SICK BUT REFUSED TO SETTLE IN HIS BED SAYING HE WANTED TO JUST GO HOME.PT IS SO CONFUSED AND SLOWLY KNELT ON THE FLOOR TO SIT DOWN. ASSISTED PT BACK TO BED BUT PT KEEPS GETTING OUT OF BED AND DIG IN THE TRASH CAN 2X TO LOOK FOR HIS SHOES WHICH WE EXPLAINED SEVERAL TIMES THAT HE DIDN'T BROUGHT HIS SHOES.WILL CONTINUE TO MONITOR FOR SAFETY.
--- NOTE | 2019-06-18 13:41 | NUR ---
CALLED CT SCAN 3X FOR PENDING CT SCAN NECK RESULT.
[2019-06-18] MEDS ORDERED: SOD FERRIC GLUC 125 MG in IV NS 0.9% 100 ML IV SCH (14:00)
[2019-06-18] MEDS ORDERED: HYDROCODONE/APAP 5/325MG 1 EACH TABLET PO PRN (14:30)
[2019-06-18] MEDS ORDERED: HYDROCODONE/APAP 10/325MG 1 EA TABLET PO PRN (14:30)
[2019-06-18] MEDS ORDERED: PANTOPRAZOLE 40 MG TABLET.DR PO SCH (14:30)
[2019-06-18] MEDS ORDERED: OLANZAPINE 10 MG VIAL IM PRN (14:30)
--- NOTE | 2019-06-18 15:03 | NUR ---
DR FLOWER WANTS PT TO BE DISCHARGED TO [facility] DUE TO SUICIDAL AND DEPRESSION HX.FAMILY AT BEDSIDE.NOTIFIED DROSS PULLER,LAURA WHO STATED THAT THE PT IS NOT QUALIFIED TO GPS DUE TO MEDICAL INSURANCE.SPOKE TO LIDA,HEATER OPERATOR WHO STATED THAT SHE WILL CALL [id number] MACHINE SET UP OPERATOR TO SEE PT IF POSSIBLE TOMORROW,ILDA WILL CALL US BACK AND LET US KNOW.
--- NOTE | 2019-06-18 15:14 | NUR ---
PT MADE BM WITH BLOOD NOTED.NOTIFIED DR FLOWER AND ORDERED TO INFORM DR CORCORAN.NOTIFIED DR CORCORAN AND MADE AWARE.
--- NOTE | 2019-06-18 15:40 | NUR ---
DR FLOWER SPOKE TO PT'S BROTHER,ELLIOTT AND DR FLOWER ORDERED TO RESUME PT'S IV MEDS AND TO REINSERT A NEW IV LINE-WHICH PT FINALLY AGREED WITH THE FAMILY'S ENCOURAGEMENT AND EXPLANATION.
[2019-06-18] MEDS ORDERED: ONDANSETRON HCL/PF 4 MG/2 ML VIAL IV PRN (16:00)
[2019-06-18] MEDS ORDERED: LORAZEPAM INJ 2 MG/ML VIAL IV PRN (16:00)
[2019-06-18] MEDS ORDERED: PANTOPRAZOLE 40 MG VIAL IV SCH (16:00)
[2019-06-18] MEDS: IV D5/ 0.9% NACL 1,000 ML IV SCH (16:41)
[2019-06-18] MEDS: SOD FERRIC GLUC 125 MG in IV NS 0.9% 100 ML IV SCH (16:57)
--- NOTE | 2019-06-18 18:23 | NUR ---
PT EATING IN THE CHAIR WITH VERY GOOD APPETITE.PT KEEPS DRINKING FLUIDS.WITH GOOD FLUID INTAKE.WILL CONTINUE TO MONITOR.CALL LIGHT PLACED WITHIN REACH. Addendum: 06/18/19 at 1828 by KAREL LLOYD RN PT HAS IVF D5NS AT 75 ML/HR INFUSING WELL TO RT AC.
--- NOTE | 2019-06-18 19:27 | NUR ---
PT MADE XL BM WITH BLOODY STAINED STOOLS.NOTIFIED DR CORCORAN.GOOD PERICARE DONE.ASSISTED PT BACK TO BED AND HOOKED BACK TO HIS IVF.CALL LIGHT PLACED WITHIN REACH.
[2019-06-18 19:51] LABS: HEMOGLOBIN 6.4 g/dL (13.5-17.5)
--- NOTE | 2019-06-18 20:31 | NUR ---
RN NOTES SPOKE WITH DR. FLOWER ON THE PHONE INFORMED HIM OF Pt'S LOW H/H: HGB 6.4 & HCT 19 & LOW BP OF 76/42 & 85/49. RECEIVED TELEPHONE ORDERS FOR 2UNITS OF PRBC & MIDLINE INSERTION (DUE TO Pt PULLING OUT 2 PREVIOUS IVs). CONFIRMED WITH DR. FLOWER IN REGARDS TO THE TELE TRANSFER ORDER AND DR FLOWER CONFIRMED FOR THE TELE TRANSFER. WILL CARRY OUT ORDERS.
--- NOTE | 2019-06-18 21:30 | NUR ---
MS/RN RECEIVED PATIENT FROM MS 2ND FLOOR, PATIENT IS AWAKE, ALERT, ORIENTED, BUT FORGETFUL, COMFORTABLE, NO C/O PAIN, NO DISTRESS NOTED, BP68/38, MI 84 RR 18, O2 SAT 98%, PER RN REPORT FROM MS 2ND FLOOR, DR. FLOWER WAS MADE AWARE OF THE LOW BP, AND RECEIVED ORDER TO TRANSFUSE 2 UNITS PRBC. CHARGE NURSE MAINE MADE AWAKE OF THE LOW BP, PER ETCHER HAND, MD HAS AN ORDER TO CHECK BP POST BLOOD TRANSFUSION IF STILL LOW, TRANSFER TO ICU. WILL MONITOR PATIENT.
--- NOTE | 2019-06-18 21:35 | NUR ---
PORTAL ARCHITECT NOTES REPORT GIVEN TO BEHZAD PIZANO. TRANSFERRED Pt SAFELY TO ROOM 326-2. IVF D5NS RUNNING ON ELIAS MIDLINE.
--- NOTE | 2019-06-18 21:58 | NUR ---
MS/RN UNABLE TO DO THE BLOOD TRANSFUSION THE BLOOD BANK ARM BAND IS NOT WITH THE PATIENT. CALLED BLOOD BANK SPOKE TO CHARITY, PER CHARITY, SHE WILL REORDER TYPE AND SCREEN STAT.
[2019-06-19] VITALS (41 sets, daily range): BP systolic 73–138; BP diastolic 43–87
--- NOTE | 2019-06-19 00:35 | NUR ---
MS/RN PRBC 1 UNIT STARTED. WILL MONITOR PER PROTOCOL.
[2019-06-19] MEDS: SUCRALFATE 1 G TABLET PO SCH ×4 (00:56→17:24)
--- NOTE | 2019-06-19 03:56 | NUR ---
MSRN PATIENT WAS MOVED TO 309-1 TO SHARE WITH THE PATIENT WITH A SITTER, FOR SAFETY.
--- NOTE | 2019-06-19 03:58 | NUR ---
MS/RN BLOOD TRANSFUSION DONE, BP 90/56, THE REST OF VS ARE WNL. WILL ADMINSTER THE SECOND UNIT OF PRBC.
--- NOTE | 2019-06-19 04:05 | NUR ---
MS/RN BLOOD PRODUCTS WAS VERIFIED WHEN ADMINISTERED BUT IT DID NOT SHOW VERIFIED. VERIFIED AGAIN IN ORDER TO END THE TRANSFUSION.
--- NOTE | 2019-06-19 04:35 | NUR ---
MS/RN PRBC UNIT #2 WAS STARTED. WILL MONITOR PER PROTOCOL.
--- NOTE | 2019-06-19 06:02 | NUR ---
MS/RN PATIENT IS SLEEPING AT THIS TIME, EASILY AROUSABLE, APPEAR COMFORTABLE, NO SIGNS OF DISTRESS NOTED, BLOOD TRANSFUSION IN PROGRESS, LATEST VITAL SIGNS BP 91/62, HR 78, RR20, TEMP 98.0, O2 SAT 98% RA. WILL CONTINUE TO MONITOR PER PROTOCOL. ALL NEEDS ATTENDED AT THIS TIME.
--- NOTE | 2019-06-19 06:35 | NUR ---
MS/RN DR. CORCORAN CALLED ASKING FOR UPDATE OF THE PATIENT'S CONDITION, UPDATE WAS GIVEN. RECEIVED ORDER OF VIT K 5 MG SC X1. ORDER CARRIED OUT.
[2019-06-19] MEDS ORDERED: PHYTONADIONE INJ 10 MG/1 ML AMPUL SQ ONE (07:00)
--- NOTE | 2019-06-19 07:30 | NUR ---
FIRE PREVENTION CAPTAIN NOTES PT IN BED, AWAKE, ALERT AND ORIENTED, WEAK, NOT IN DISTRESS, WITH ONGOING BLOOD TRANSFUSION, TOLERATING WELL, SR ON THE MONITOR, KEPT COMFORTABLE IN BED.
--- NOTE | 2019-06-19 08:34 | NUR ---
SUSTAINABILITY ENGINEER NOTES PT TRANSFERED TO ICU ORDERED BY DR. FLOWER, S/P BLOOD TRANSFUSION, TOLERATED WELL, REPORT GIVEN TO RUT CHIP PERSON.
[2019-06-19] MEDS: IV D5/ 0.9% NACL 1,000 ML IV SCH ×2 (08:45→20:36)
[2019-06-19] MEDS ORDERED: PANTOPRAZOLE 40 MG VIAL IV SCH (09:00)
[2019-06-19] MEDS: HYDROMORPHONE 1 MG/1 ML DISP.SYRIN IV PRN ×3 (09:15→15:28)
--- NOTE | 2019-06-19 09:30 | NUR ---
rn note 0840-received patient from rn. patient awake, alert, follows commands. states that he wants to eat, he is in pain, he is aware he is in the hospital. poisitioned him for comfort and safety.explained to him that MD did not want him to eat thsi time because of his styomach issues, pain medciation will be gicen when his BP is within acceptable level. 0915-patient sbp-99mmHg,patient states he is usually "hypotnesive, bp goes to 80's at times", pain medication given, patient more awake, he states " i will not last long", face sheet transmitted to [facility] for consult.
[2019-06-19 10:32] LABS: HEMOGLOBIN 7.8 g/dL (13.5-17.5)
--- NOTE | 2019-06-19 10:35 | NUR ---
rn notes 1020-patient asleep this time.earlier, he started to ask his xanax "so i can sleep", explained to him i just gave him pain medication, rest promoted.repsotioned for comfrort and safety
[2019-06-19] MEDS: PANTOPRAZOLE 40 MG VIAL IV SCH ×2 (11:25→20:35)
[2019-06-19] MEDS ORDERED: SOD FERRIC GLUC 125 MG in IV NS 0.9% 100 ML IV SCH (14:00)
[2019-06-19] MEDS: SOD FERRIC GLUC 125 MG in IV NS 0.9% 100 ML IV SCH (19:11)
--- NOTE | 2019-06-19 19:40 | NUR ---
ICU/CLINICAL PROJECT MANAGER RECEIVED REPORT FROM DAY SHIFT NURSE. SEE FLOWSHEET FOR ASSESSMENT. THERE NO SKIN ISSUES THAT NEED TO BE ADDRESSED. PT IS ALERT X 4. PT IS ON 3 LITERS VIA N/C TOLERATING THIS WELL, WITH SATURATION AT 100%. PT WAS TURNED AND REPOSITIONED FOR COMFORT AND CARE, WILL CONTINUE TO MONITOR THIS PT.
--- NOTE | 2019-06-19 19:46 | NUR ---
RN NOTES 1400-PATIENT REMAINS WITH WANT TO EAT/DRINK; NEEDED TO REINFORCE THAT HE IS NPO FOR NOW; THEN HE STARTS SATYING THAT "HIS BODY IS MELTING", INFORMED HIM THAT HE IS NOR MELTING AND WE ARE HERE TO HELP HIM 1600-ON BLOOD TRANSFUSION, NO IMMEDIATE ADVERSE REACTIONS NOTED.PATIENT REMAINS WITH C/O OF ABDOMINAL PAIN, HEART RATE ON 60'S MOST OF THE ALL THE TIME.REST PROMOTED. 1800-TRANSFUSION COMPLETED, NO ADVERSE REACTIONS NOTED. NEEDS ATTENDED, REFOCUSED HIS ATTENTION TO HIS PROGRESS MOST. 1900-PER MARGARITA OF [facility], PATIENT IS TO BE TRANSFERRED TO [facility].CALLED FOR REPORT, FACLITY WILL CALL BACK. REPORT GIVEN TO RN FOR FURTHER CARE
[2019-06-19] MEDS ORDERED: OLANZAPINE 5 MG/TAB.RAPDIS PO SCH (22:00)
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
== END 2019-06-19 22:46 | disposition short-term general hospital (02) | DRG 241 ==
LOC: ER 07:29 → ICU 10:34 → TELE 06-17 03:10 → ICU 06-17 10:19 → MEDSG2 06-18 10:02 → TELE 06-18 21:33 → ICU 06-19 08:04
PROVIDERS: ADMIT Internal Medicine; ATTEND Internal Medicine
PROC: 05H933Z Insertion of Infusion Device into Right Brachial Vein, Percutaneous Approach (ICD-10-PCS; 2019-06-16)
PROC: 30233P1 Transfusion of Nonautologous Frozen Red Cells into Peripheral Vein, Percutaneous Approach (ICD-10-PCS; 2019-06-16)
PROC: 0W3P8ZZ Control Bleeding in Gastrointestinal Tract, Via Natural or Artificial Opening Endoscopic (ICD-10-PCS; principal; 2019-06-18)
PROC: 05H933Z Insertion of Infusion Device into Right Brachial Vein, Percutaneous Approach (ICD-10-PCS; 2019-06-18)
PROC: 0D598ZZ Destruction of Duodenum, Via Natural or Artificial Opening Endoscopic (ICD-10-PCS; 2019-06-18)
DX: K26.4 Chronic or unspecified duodenal ulcer with hemorrhage (principal); I95.9 Hypotension, unspecified; F20.9 Schizophrenia, unspecified; R13.10 Dysphagia, unspecified; E44.1 Mild protein-calorie malnutrition; I10 Essential (primary) hypertension; D62 Acute posthemorrhagic anemia; Z85.819 Personal history of malignant neoplasm of unspecified site of lip, oral cavity, and pharynx; B19.20 Unspecified viral hepatitis C without hepatic coma; F29 Unspecified psychosis not due to a substance or known physiological condition; E86.1 Hypovolemia; K29.81 Duodenitis with bleeding; Z66 Do not resuscitate; Z68.22 Body mass index [BMI] 22.0-22.9, adult
CPT/HCPCS: 36415; 70450-TC; 70491-TC; 71045-TC; 80048-TC; 80053-TC; 80076-TC; 80305; 81000-TC; 82962-TC; 83690-TC; 84439-TC; 84443-TC; 85025-TC; 85027-TC; 85730-TC; 86850-TC; 86921-TC; 87081-TC; 94799-TC; C9113; G0378; G0480; J0171; J1170; J2060; J2250; J2270; J2405; J2704; J2916; J3430; J3490; J7030; J7040; J7042; J7050; P9016-BL; Q9967

== ENCOUNTER 2019-07-12 17:23 | Emergency (ER) | payer MEDICAID ==
[~2019-07-12] VITALS: Ht 177.8 cm; Wt 65.8 kg
--- NOTE | 2019-07-12 18:08 | NUR ---
[facility] to ER, c/o nausea & vomiting since this morning POLST reviewed : DNR status verified
--- NOTE | 2019-07-12 19:32 | NUR ---
SEEN AND EXAMINED BY
--- NOTE | 2019-07-12 19:52 | NUR ---
US AT BEDSIDE
[2019-07-12] MEDS ORDERED: MAG HYDROX/AL HYDROX/SIMETH 30 ML UDC PO ONE (20:00)
[2019-07-12] MEDS ORDERED: FAMOTIDINE/PF INJ 20 MG/2 ML VIAL IV ONE ×2 (20:00→20:20)
[2019-07-12] MEDS ORDERED: LIDOCAINE VISCOUS 2% UD 15 ML UDC MM ONE (20:00)
[2019-07-12] MEDS ORDERED: ONDANSETRON HCL/PF 4 MG/2 ML VIAL IVP ONE (20:00)
[2019-07-12] MEDS ORDERED: NITROGLYCERIN 0.4 MG/TAB BOTTLE SL ONE (20:00)
[2019-07-12] MEDS ORDERED: LORAZEPAM INJ 2 MG/ML VIAL IV ONE (20:00)
[2019-07-12] MEDS ORDERED: IV NS 0.9% 1,000 ML BAG IV ONE (20:00)
[2019-07-12] MEDS ORDERED: ONDANSETRON HCL/PF 4 MG/2 ML VIAL ONE (20:17)
[2019-07-12] MEDS ORDERED: NITROGLYCERIN 0.4 MG/TAB BOTTLE ONE (20:17)
[2019-07-12] MEDS ORDERED: LIDOCAINE VISCOUS 2% UD 15 ML UDC ONE (20:17)
[2019-07-12] MEDS ORDERED: MAG HYDROX/AL HYDROX/SIMETH 30 ML UDC ONE (20:17)
[2019-07-12 20:18] LABS: BASOPHILS # (AUTO) 0.1 /CMM (0.0-0.2); EOSINOPHILS % (AUTO) 1.6 % (0.0-6.0); HEMATOCRIT 34 % (39-51); HEMOGLOBIN 11.2 g/dL (13.5-17.5); LYMPHOCYTES # (AUTO) 2.5 /CMM (0.8-4.8); LYMPHOCYTES % (AUTO) 32.8 % (20.0-44.0); MEAN CORPUSCULAR HGB CONC 33 g/dl (31.0-36.0); MEAN CORPUSCULAR VOLUME 92 fL (80-96); MONOCYTES # (AUTO) 0.7 /CMM (0.1-1.30); MONOCYTES % (AUTO) 9.1 % (2.0-12.0); NEUTROPHILS # (AUTO) 4.3 /CMM (1.8-8.9); NEUTROPHILS % (AUTO) 55.5 % (43.0-81.0); PLATELET COUNT (AUTO) 276 /CMM (150-450); RED BLOOD CELL COUNT(AUTO) 3.71 MIL/uL (4.5-6.0); WHITE BLOOD COUNT (AUTO) 7.7 K/uL (4.3-11.0)
[2019-07-12] MEDS ORDERED: LORAZEPAM INJ 2 MG/ML VIAL ONE (20:18)
[2019-07-12 20:25] LABS: CALCIUM, SERUM 8.4 mg/dL (8.5-10.1); CARBON DIOXIDE 28 mmol/L (21-32); CHLORIDE 110 mmol/L (98-107); CREATININE 0.7 mg/dL (0.6-1.3); GLUCOSE 99 mg/dL (74-106); POTASSIUM 4.3 mmol/L (3.5-5.1); SODIUM SERUM 145 mmol/L (136-145); UREA NITROGEN, BLOOD 16 mg/dL (7-18)
[2019-07-12 20:37] LABS: ALANINE AMINOTRANSFERASE 33 U/L (12-78); ALBUMIN 2.7 g/dL (3.4-5.0); ALKALINE PHOSPHATASE 72 U/L (46-116); ASPARTATE AMINOTRANSFERASE 29 U/L (15-37); B-TYPE NATRIURETIC PEPTIDE 1786 PG/ML (0-125); BILIRUBIN,DIRECT 0.1 mg/dL (0.0-0.2); BILIRUBIN,TOTAL 0.2 mg/dL (0.2-1.0); TOTAL PROTEIN, SERUM 6.4 g/dL (6.4-8.2)
[2019-07-12] MEDS ORDERED: CT SWABBABLE VALVE TRANS SET 1 EA INFUS.SET MC ONE (21:48)
[2019-07-12] MEDS ORDERED: IV NS 0.9% 250 ML IV ONE (21:48)
[2019-07-12] MEDS ORDERED: IOHEXOL-300 100 ML VIAL IV ONE (21:48)
--- NOTE | 2019-07-12 21:48 | NUR ---
PT TAKEN TO CT
[2019-07-12] MEDS ORDERED: MORPHINE SULFATE INJ 4 MG/ML DISP.SYRIN ONE (21:58)
[2019-07-12] MEDS ORDERED: MORPHINE SULFATE INJ 10 MG/ML DISP.SYRIN IV ONE (22:00)
--- NOTE | 2019-07-12 22:14 | NUR ---
RETURNED FROM CT
[2019-07-13 00:08] VITALS: BP 138/77
--- NOTE | 2019-07-13 00:08 | NUR ---
IV removed. Catheter intact and site benign. Pressure and 4x4 applied to site. No bleeding noted. Patient discharged to home in stable condition. Written and verbal after care instructions given. Patient verbalizes understanding of instruction.
== END 2019-07-13 00:10 | disposition home or self-care (01) ==
LOC: ER 17:26
DX: R10.13 Epigastric pain (principal); R07.89 Other chest pain; F41.9 Anxiety disorder, unspecified; R11.2 Nausea with vomiting, unspecified; I10 Essential (primary) hypertension; D64.9 Anemia, unspecified; F20.9 Schizophrenia, unspecified; F17.200 Nicotine dependence, unspecified, uncomplicated; Z98.890 Other specified postprocedural states; Z91.048 Other nonmedicinal substance allergy status; Z85.819 Personal history of malignant neoplasm of unspecified site of lip, oral cavity, and pharynx; Z60.2 Problems related to living alone; Z79.899 Other long term (current) drug therapy
CPT/HCPCS: 36415; 71045; 74177; 76700; 80048; 80076; 83690; 83880; 84484; 85025; 85730; 93005; 96374; 96375; 99284; J2060; J2270; J2405; J3490; J7050; Q9967

== ENCOUNTER 2019-07-13 17:20 | Emergency (ER) | payer MEDICAID ==
[~2019-07-13] VITALS: Ht 182.9 cm; Wt 63.5 kg
[2019-07-13] MEDS ORDERED: ACETAMINOPHEN 650 MG/20.3 ML UDC PO ONE (18:00)
[2019-07-13] MEDS ORDERED: ACETAMINOPHEN 325 MG TABLET ONE (18:34)
[2019-07-13 18:56] VITALS: BP 124/70
== END 2019-07-13 19:01 | disposition home or self-care (01) ==
LOC: ER 17:23
DX: F41.9 Anxiety disorder, unspecified (principal); I10 Essential (primary) hypertension; F17.200 Nicotine dependence, unspecified, uncomplicated; Z91.048 Other nonmedicinal substance allergy status; Z98.890 Other specified postprocedural states; Z60.2 Problems related to living alone; Z79.899 Other long term (current) drug therapy; Z85.819 Personal history of malignant neoplasm of unspecified site of lip, oral cavity, and pharynx

== ENCOUNTER 2020-11-15 13:58 | Emergency (ER) | payer MEDICAID ==
[~2020-11-15] VITALS: Ht 170.2 cm; Wt 79.4 kg
[~2020-11-15 13:58] MED LIST changes: +LISI40TA13 PO; -LISI40TA4 PO
--- NOTE | 2020-11-15 14:20 | NUR ---
pt rec'd to er c/o for a week sob hospice patient full code . iv s atrted 20g rt hand hx of drug use . vss 97% ra labs drawn sent to labAWAITING EVALUATION BY ER PROVIDER.
[2020-11-15] MEDS ORDERED: IV NS 0.9% 500 ML BAG IV ONE (14:30)
[2020-11-15 14:38] LABS: BASOPHILS # (AUTO) 0.1 /CMM (0.0-0.2); BASOPHILS % (AUTO) 1.1 % (0.0-2.0); EOSINOPHILS % (AUTO) 1.3 % (0.0-6.0); HEMATOCRIT 43 % (39-51); HEMOGLOBIN 14.5 g/dL (13.5-17.5); LYMPHOCYTES # (AUTO) 4.5 /CMM (0.8-4.8); LYMPHOCYTES % (AUTO) 36.8 % (20.0-44.0); MEAN CORPUSCULAR HGB CONC 34 g/dl (31.0-36.0); MEAN CORPUSCULAR VOLUME 92 fL (80-96); MONOCYTES # (AUTO) 0.9 /CMM (0.1-1.30); MONOCYTES % (AUTO) 7.6 % (2.0-12.0); NEUTROPHILS # (AUTO) 6.5 /CMM (1.8-8.9); NEUTROPHILS % (AUTO) 53.2 % (43.0-81.0); PLATELET COUNT (AUTO) 252 /CMM (150-450); RED BLOOD CELL COUNT(AUTO) 4.69 MIL/uL (4.5-6.0); WHITE BLOOD COUNT (AUTO) 12.3 K/uL (4.3-11.0)
[2020-11-15 14:45] LABS: CALCIUM, SERUM 8.4 mg/dL (8.5-10.1); CARBON DIOXIDE 27 mmol/L (21-32); CHLORIDE 102 mmol/L (98-107); CREATININE 0.8 mg/dL (0.6-1.3); GLUCOSE 116 mg/dL (74-106); POTASSIUM 4.5 mmol/L (3.5-5.1); SODIUM SERUM 135 mmol/L (136-145); UREA NITROGEN, BLOOD 21 mg/dL (7-18)
[2020-11-15 14:57] LABS: ALANINE AMINOTRANSFERASE 107 U/L (12-78); ALBUMIN 3.3 g/dL (3.4-5.0); ALKALINE PHOSPHATASE 68 U/L (46-116); ASPARTATE AMINOTRANSFERASE 69 U/L (15-37); B-TYPE NATRIURETIC PEPTIDE 343 PG/ML (0-125); BILIRUBIN,DIRECT 0.2 mg/dL (0.0-0.2); BILIRUBIN,TOTAL 0.5 mg/dL (0.2-1.0); TOTAL PROTEIN, SERUM 7.4 g/dL (6.4-8.2)
[2020-11-15 15:57] VITALS: BP 134/79
== END 2020-11-15 16:03 | disposition home or self-care (01) ==
LOC: ER 14:01
DX: R06.02 Shortness of breath (principal); F17.200 Nicotine dependence, unspecified, uncomplicated; I10 Essential (primary) hypertension; Z98.890 Other specified postprocedural states; Z88.8 Allergy status to other drugs, medicaments and biological substances; Z91.048 Other nonmedicinal substance allergy status; Z60.2 Problems related to living alone; Z79.899 Other long term (current) drug therapy
CPT/HCPCS: 36415; 71045; 80048; 80076; 83880; 84484; 85025; 93005; 99285; 99406; J7030

== ENCOUNTER 2021-03-25 14:50 | Emergency (ER) | payer MEDICAID ==
[~2021-03-25] VITALS: Ht 177.8 cm; Wt 83.9 kg
--- NOTE | 2021-03-25 14:50 | NUR ---
PT BIB SELF C/O CHEST PAIN DULL, NON RADIATING. PT IS AAOX4, NOT IN RESPIRATORY DISTRESS, HOOKED TO CELLAR WORKER, KEPT RESTED AND COMFORTABLE. WILL CONTINUE TO MONITOR.
[2021-03-25] MEDS ORDERED: ONDANSETRON HCL/PF 4 MG/2 ML VIAL IVP ONE (15:30)
[2021-03-25] MEDS ORDERED: IV NS 0.9% 1,000 ML BAG IV ONE (15:30)
[2021-03-25] MEDS ORDERED: MORPHINE SULFATE INJ 2 MG/ML DISP.SYRIN IV ONE (15:30)
--- NOTE | 2021-03-25 15:30 | NUR ---
IV LINE ESTABLISHED BLOOD DRAWN AND SENT TO LAB.
[2021-03-25 15:38] LABS: BASOPHILS # (AUTO) 0.1 K/uL (0.0-0.2); BASOPHILS % (AUTO) 0.6 % (0.0-2.0); EOSINOPHILS % (AUTO) 2.6 % (0.0-6.0); HEMATOCRIT 43 % (39-51); HEMOGLOBIN 14.6 g/dL (13.5-17.5); LYMPHOCYTES # (AUTO) 4.3 K/uL (0.8-4.8); LYMPHOCYTES % (AUTO) 44.5 % (20.0-44.0); MEAN CORPUSCULAR HGB CONC 34 g/dl (31.0-36.0); MEAN CORPUSCULAR VOLUME 94 fL (80-96); MONOCYTES # (AUTO) 0.9 K/uL (0.1-1.30); MONOCYTES % (AUTO) 9.6 % (2.0-12.0); NEUTROPHILS # (AUTO) 4.1 K/uL (1.8-8.9); NEUTROPHILS % (AUTO) 42.7 % (43.0-81.0); PLATELET COUNT (AUTO) 199 K/uL (150-450); RED BLOOD CELL COUNT(AUTO) 4.55 MIL/uL (4.5-6.0); WHITE BLOOD COUNT (AUTO) 9.6 K/uL (4.3-11.0)
[2021-03-25] MEDS ORDERED: ONDANSETRON HCL/PF 4 MG/2 ML VIAL ONE (15:38)
[2021-03-25] MEDS ORDERED: MORPHINE SULFATE INJ 4 MG/ML DISP.SYRIN ONE (15:38)
[2021-03-25 17:33] LABS: CALCIUM, SERUM 8.4 mg/dL (8.5-10.1); CARBON DIOXIDE 24 mmol/L (21-32); CHLORIDE 105 mmol/L (98-107); CREATININE 0.7 mg/dL (0.6-1.3); GLUCOSE 137 mg/dL (74-106); SODIUM SERUM 139 mmol/L (136-145); UREA NITROGEN, BLOOD 22 mg/dL (7-18)
[2021-03-25 17:42] LABS: ALANINE AMINOTRANSFERASE 103 U/L (12-78); ALBUMIN 3.3 g/dL (3.4-5.0); ALKALINE PHOSPHATASE 59 U/L (46-116); ASPARTATE AMINOTRANSFERASE 59 U/L (15-37); BILIRUBIN,DIRECT 0.2 mg/dL (0.0-0.2); BILIRUBIN,TOTAL 0.6 mg/dL (0.2-1.0); TOTAL PROTEIN, SERUM 7.3 g/dL (6.4-8.2)
[2021-03-25 18:25] VITALS: BP 120/72
--- NOTE | 2021-03-25 18:25 | NUR ---
Patient a/ox4, breathing even and unlabored, no sob noted. Needs attended. IV removed. Catheter intact and site benign. Pressure and 4x4 applied to site. No bleeding noted.Patient discharged to home in stable condition. Written and verbal after care instructions given. Patient verbalizes understanding of instruction.
== END 2021-03-25 18:25 | disposition home or self-care (01) ==
LOC: ER 15:20
DX: R07.89 Other chest pain (principal); I10 Essential (primary) hypertension; F17.200 Nicotine dependence, unspecified, uncomplicated; Z86.19 Personal history of other infectious and parasitic diseases; Z85.818 Personal history of malignant neoplasm of other sites of lip, oral cavity, and pharynx; Z98.890 Other specified postprocedural states; Z88.6 Allergy status to analgesic agent; Z91.048 Other nonmedicinal substance allergy status; Z60.2 Problems related to living alone; Z79.899 Other long term (current) drug therapy
CPT/HCPCS: 36415; 71045; 80048; 80076; 83880; 84484; 85025; 93005; 96361; 96374; 96375; 99285; J2270; J2405; J7030

== ENCOUNTER 2021-07-16 11:48 | Emergency (ER) | payer MEDICAID ==
[~2021-07-16] VITALS: Ht 180.3 cm; Wt 71.2 kg
--- NOTE | 2021-07-16 12:05 | NUR ---
ON & OFF CHEST PAIN SINCE HE WAS HERE IN 2020,WORSE TODAY. RATES HIS PAIN 6/10 ON PAIN SCALE. BREATHING IS REGULAR AND UNLABORED. PT ATTCHED TO MONITOR. IV ESTABLISHED R AC 20G, LABS DRAWN AND COLLECTED AT BEDSIDE, CONVERTED TO SALINE LOCK. MD FLORES AT BEDSIDE.
--- NOTE | 2021-07-16 12:30 | NUR ---
X RAY AT BEDSIDE
[2021-07-16 12:51] LABS: BASOPHILS # (AUTO) 0.1 K/uL (0.0-0.2); BASOPHILS % (AUTO) 0.8 % (0.0-2.0); EOSINOPHILS % (AUTO) 2.6 % (0.0-6.0); HEMATOCRIT 45 % (39-51); LYMPHOCYTES # (AUTO) 4.5 K/uL (0.8-4.8); LYMPHOCYTES % (AUTO) 45.1 % (20.0-44.0); MEAN CORPUSCULAR HGB CONC 34 g/dl (31.0-36.0); MEAN CORPUSCULAR VOLUME 97 fL (80-96); MONOCYTES # (AUTO) 0.8 K/uL (0.1-1.30); MONOCYTES % (AUTO) 7.6 % (2.0-12.0); NEUTROPHILS # (AUTO) 4.4 K/uL (1.8-8.9); NEUTROPHILS % (AUTO) 43.9 % (43.0-81.0); PLATELET COUNT (AUTO) 210 K/uL (150-450); RED BLOOD CELL COUNT(AUTO) 4.61 MIL/uL (4.5-6.0)
[2021-07-16 13:46] LABS: CALCIUM, SERUM 8.4 mg/dL (8.5-10.1); CARBON DIOXIDE 25 mmol/L (21-32); CHLORIDE 104 mmol/L (98-107); GLUCOSE 106 mg/dL (74-106); POTASSIUM 4.2 mmol/L (3.5-5.1); SODIUM SERUM 138 mmol/L (136-145); UREA NITROGEN, BLOOD 17 mg/dL (7-18)
[2021-07-16] MEDS ORDERED: AMLO10TA4 PO (14:13)
[2021-07-16] MEDS ORDERED: CARV12.5 PO (14:13)
[2021-07-16] MEDS ORDERED: DOCU100T10 PO (14:13)
[2021-07-16] MEDS ORDERED: SENN-148 PO (14:13)
[2021-07-16] MEDS ORDERED: ASPIRIN 81 MG TAB.CHEW ONE (14:21)
[2021-07-16] MEDS ORDERED: ASPIRIN 81 MG TAB.CHEW PO ONE (14:30)
--- NOTE | 2021-07-16 14:31 | NUR ---
MOVE SHEET SUBMITTED.
[2021-07-16] MEDS ORDERED: IV NS 0.9% 1,000 ML IV ONE (15:00)
--- NOTE | 2021-07-16 21:04 | NUR ---
Patient discharged to home in stable condition. Written and verbal after care instructions given. Patient verbalizes understanding of instruction.
[2021-07-16 21:06] VITALS: BP 128/74
== END 2021-07-16 21:06 | disposition home or self-care (01) ==
LOC: ER 11:57
DX: R07.89 Other chest pain (principal); I11.0 Hypertensive heart disease with heart failure; I50.9 Heart failure, unspecified; Z79.899 Other long term (current) drug therapy; Z88.8 Allergy status to other drugs, medicaments and biological substances; Z91.048 Other nonmedicinal substance allergy status
CPT/HCPCS: 36415; 71045; 80048; 83880; 84484 ×2; 85025; 87081; 93005 ×3; 96360; 99285; J7030